=== PATIENT | female | born 1975 | race Caucasian/White ===

== ENCOUNTER 2019-04-20 21:10 | Emergency (ER) | payer MEDICAID ==
[2019-04-20] MEDS ORDERED: ONDANSETRON 4 MG TAB.RAPDIS PO ONE (22:24)
--- NOTE | 2019-04-20 22:26 | ER Document Report ---
ED Medical Screen (RME) - General Chief Complaint: Anxiety Stated Complaint: WITHDRAWAL,ANXIETY Time Seen by Provider: 04/20/19 22:22 Mode of Arrival: Wheelchair Information source: Patient Notes: Patient presents from a detox facility after 3 days of treatment for detox from methadone 80 mg daily and 1 mg 3 times a day daily of Xanax. Patient states that she had been receiving Depakote and clonidine to help manage her symptoms. Patient does complain of feeling anxious and that her legs feel restless. Patient reports nausea and diarrhea x1 episode today. Patient initially stated she had vomiting and then denied vomiting. Patient with tangential speech and poor recall. Patient also concerned that she may be having a Crohn's flareup. I have greeted and performed a rapid initial assessment of this patient. A comprehensive ED assessment and evaluation of the patient, analysis of test results and completion of the medical decision making process will be conducted by additional ED providers. TRAVEL OUTSIDE OF THE [place] IN LAST 30 DAYS: No - Related Data Allergies/Adverse Reactions: No Known Allergies Allergy (Unverified 04/20/19 21:16) Physical Exam - Vital signs Vitals: Temp Pulse Resp BP Pulse Ox 98 F 109 H 19 118/93 H 99 04/20/19 22:11 04/20/19 22:11 04/20/19 22:11 04/20/19 22:11 04/20/19 22:11 - Psychological Associated symptoms: Anxious, Tangential speech Course - Vital Signs Vital signs: Temp Pulse Resp BP Pulse Ox 98 F 109 H 19 118/93 H 99 04/20/19 22:11 04/20/19 22:11 04/20/19 22:11 04/20/19 22:11 04/20/19 22:11
[2019-04-20 23:47] LABS: APPEARANCE,URINE CLEAR; BILIRUBIN,URINE NEGATIVE (NEGATIVE); COLOR,URINE YELLOW; GLUCOSE, URINE NEGATIVE (NEGATIVE); KETONES,URINE TRACE mg/dL (NEGATIVE); LEUKOCYTE ESTERASE,URINE SMALL (NEGATIVE); NITRITE,URINE NEGATIVE (NEGATIVE); PROTEIN,URINE NEGATIVE (NEGATIVE); URINE SPECIFIC GRAVITY 1.011; UROBILINOGEN,URINE NEGATIVE mg/dL (<2.0)
[2019-04-20 23:59] LABS: URINE AMPHETAMINES SCREEN NEGATIVE; URINE BARBITURATES SCREEN NEGATIVE; URINE BENZODIAZEPINES SCREEN UNCONFIRMED POSITIVE; URINE COCAINE SCREEN NEGATIVE; URINE MARIJUANA (THC) SCREEN NEGATIVE; URINE METHADONE SCREEN UNCONFIRMED POSITIVE; URINE PHENCYCLIDINE SCREEN NEGATIVE
[2019-04-21 01:13] LABS: ALBUMIN 4.2 g/dL (3.5-5.0); ANION GAP 13 (5-19); BILIRUBIN,DIRECT 0.5 mg/dL (0.0-0.4); BILIRUBIN,TOTAL 0.6 mg/dL (0.2-1.3); BLOOD UREA NITROGEN 8 mg/dL (7-20); CALCIUM 9.5 mg/dL (8.4-10.2); CARBON DIOXIDE 24 mmol/L (22-30); CHLORIDE 104 mmol/L (98-107); GLUCOSE 102 mg/dL (75-110); TOTAL PROTEIN 8.2 g/dL (6.3-8.2)
[2019-04-21 01:22] LABS: ACETAMINOPHEN < 10 ug/mL (10-30); ALCOHOL < 10 mg/dL (NONE DETECTED); ASPARTATE AMINO TRANSFERASE 27 U/L (14-36); POTASSIUM 4.3 mmol/L (3.6-5.0); SALICYLATE < 1.0 mg/dL (2.0-20.0)
[2019-04-21 01:23] LABS: ALKALINE PHOSPHATASE 114 U/L (38-126)
[2019-04-21 01:26] LABS: HEMATOCRIT 30.5 % (36.0-47.0); HEMOGLOBIN 9.3 g/dL (12.0-15.5); MEAN CORPUSCULAR HEMOGLOBIN 18.7 pg (27.0-33.4); MEAN CORPUSCULAR HGB CONC 30.4 g/dL (32.0-36.0); PLATELET COUNT 226 10^3/uL (150-450); RED BLOOD COUNT 4.96 10^6/uL (3.72-5.28); RED CELL DISTRIBUTION WIDTH 18.4 % (11.5-14.0); WHITE BLOOD COUNT 5.6 10^3/uL (4.0-10.5)
[2019-04-21 01:54] LABS: ABSOLUTE LYMPHOCYTES# (MANUAL) 1.3 10^3/uL (0.5-4.7); ABSOLUTE MONOCYTES # (MANUAL) 0.2 10^3/uL (0.1-1.4); BASOPHILS % (MANUAL) 0 % (0-2); EOSINOPHILS % (MANUAL) 0 % (0-6); LYMPHOCYTES % (MANUAL) 23 % (13-45); MONOCYTES % (MANUAL) 4 % (3-13); SEGMENTED NEUTROPHILS % (MAN) 73 % (42-78); TOTAL CELLS COUNTED 100
[2019-04-21 01:56] LABS: ANISOCYTOSIS 2+; PLATELET COMMENT ADEQUATE
[2019-04-21 01:57] LABS: MEAN CORPUSCULAR VOLUME 62 fl (80-97)
[2019-04-21] MEDS ORDERED: NORMAL SALINE 1000 ML 1,000 ML IV ONE (03:51)
--- NOTE | 2019-04-21 03:55 | ER Document Report ---
ED General - General Chief Complaint: Anxiety Stated Complaint: WITHDRAWAL,ANXIETY Time Seen by Provider: 04/20/19 22:22 Mode of Arrival: Wheelchair Notes: Patient is a 43-year-old female that comes to the emergency department for chief complaint of being sent over by the detox clinic. She states that she is currently undergoing detox for methadone 80 mg daily and Xanax 4 mg twice a day, she states that this is day 3 of treatment and she states that the staff told her that because of her heart rate and symptoms she needed to be evaluated at the emergency department. Patient states she has not been able to eat, she states she has been very shaky, she feels like she is in a fog, she has difficulty with memory, her vision intermittently seems blurry, she states she threw up with dry heaves once this morning and she had one loose stool earlier today. She does not report specific abdominal pain. She denies blood in her stool. She denies fever. Patient has a history of Crohn's disease and needs to be on mesalamine but was taken off reportedly. She denies any history of bowel surgeries or bowel obstruction. TRAVEL OUTSIDE OF THE [place] IN LAST 30 DAYS: No - Related Data Allergies/Adverse Reactions: No Known Allergies Allergy (Unverified 04/20/19 21:16) Past Medical History - General Information source: Patient - Social History Smoking Status: Current Every Day Smoker Frequency of alcohol use: None Drug Abuse: None Lives with: Alone Family History: Reviewed & Not Pertinent Patient has suicidal ideation: No Patient has homicidal ideation: No Renal/ Medical History: Denies: Hx Peritoneal Dialysis GI Medical History: Reports: Hx Crohn's Disease Psychiatric Medical History: Reports: Other - Opiate and benzodiazepine dependence - Immunizations Immunizations up to date: Yes Hx Diphtheria, Pertussis, Tetanus Vaccination: Yes Review of Systems - Review of Systems Constitutional: See HPI EENT: No symptoms reported Cardiovascular: No symptoms reported Respiratory: No symptoms reported Gastrointestinal: See HPI Genitourinary: No symptoms reported Female Genitourinary: No symptoms reported Musculoskeletal: No symptoms reported Skin: No symptoms reported Hematologic/Lymphatic: No symptoms reported Neurological/Psychological: See HPI Physical Exam - Vital signs Vitals: Temp Pulse Resp BP Pulse Ox 98 F 109 H 19 118/93 H 99 04/20/19 22:11 04/20/19 22:11 04/20/19 22:11 04/20/19 22:11 04/20/19 22:11 - Notes Notes: GENERAL: Patient somewhat restless, appears mildly uncomfortable but not in distress HEAD: Normocephalic, atraumatic. EYES: Pupils equal, round, and reactive to light. Extraocular movements intact. ENT: Oral mucosa very dry, tongue midline. Oropharynx unremarkable. Airway patent. NECK: Full range of motion. Supple. Trachea midline. LUNGS: Clear to auscultation bilaterally, no wheezes, rales, or rhonchi. No respiratory distress. HEART: Regular rate and rhythm. No murmur ABDOMEN: Soft, non-tender. Non-distended. Bowel sounds present in all 4 quadrants. GENITOURINARY: Deferred EXTREMITIES: Moves all 4 extremities spontaneously. No edema, normal radial and dorsalis pedis pulses bilaterally. No cyanosis. BACK: no cervical, thoracic, lumbar midline tenderness. No saddle anesthesia, normal distal neurovascular exam. Moves all extremities in full range of motion. NEUROLOGICAL: Alert and oriented x3. Normal speech. Cranial nerves II through XII grossly intact. PSYCH: Disorganized thought process slightly, pressured speech, somewhat restless SKIN: Warm, dry, normal turgor. No rashes or lesions noted. Course - Re-evaluation Re-evalutation: Patient's abdomen is benign. Vital signs are unremarkable now. CBC shows anemia, no leukocytosis. Chemistry unremarkable. Urine does show ketones suggesting dehydration and patient does have dry mucous membranes, she will be given IV fluids. Urine otherwise unremarkable with some squamous epithelials contaminating. Drug screen is positive for methadone and benzodiazepines as patient reported. Alcohol negative, remaining screening negative. EKG unremarkable. Patient initially with pressured speech, she was jittery and slightly restless, she did initially have tachycardia. She is stating that she only took Xanax twice a day, this is very short acting, I am not suspecting benzodiazepine withdrawal. Patient is given IV fluids, I discussed options in detail. Patient states that she was sent over from [facility], she states that she does not intend to go back. She states she does want to stop and get off of methadone because she is afraid of being on it long-term. She states she was previously on Suboxone and actually did very well on this. She states that even though she does not want to go back, she states she wants to know what other options she has and she thinks that being on Suboxone might be the best option for her. I did discuss with Dr. Cox. Patient will be given a dose of Subutex as we do not have Suboxone, she is medically cleared based on her work-up and evaluation, she will speak to the mental health team and most likely follow-up with them outpatient. Patient states appreciation and agreement with plan. - Vital Signs Vital signs: Temp Pulse Resp BP Pulse Ox 98 F 109 H 16 150/102 H 100 04/20/19 22:11 04/20/19 22:11 04/21/19 05:01 04/21/19 05:01 04/21/19 05:01 - Laboratory Result Diagrams: 04/21/19 01:15 04/21/19 00:28 Laboratory results interpreted by me: 04/20/19 04/21/19 04/21/19 23:16 00:28 01:15 Hgb 9.3 L Hct 30.5 L MCV 62 L MCH 18.7 L MCHC 30.4 L RDW 18.4 H Direct Bilirubin 0.5 H Urine Ketones TRACE H Urine Blood MODERATE H Ur Leukocyte Esterase SMALL H Salicylates < 1.0 L Acetaminophen < 10 L - EKG Interpretation by Me Additional EKG results interpreted by me: EKG shows sinus rhythm rate of rate of 82, QTC 439, normal axis, no T wave inversions or ST segment changes in consecutive leads. Discharge - Discharge Clinical Impression: Methadone withdrawal, Dehydration Opiate dependence Qualifiers: Substance use status: uncomplicated Qualified Code(s): F11.20 - Opioid dependence, uncomplicated Condition: Stable Disposition: PSYCH HOSP/UNIT
[2019-04-21] MEDS ORDERED: BUPRENORPHINE HCL 2 MG SUBLINGUAL TABLET SL ONE (05:04)
--- NOTE | 2019-04-21 09:15 | EKG REPORT ---
SEVERITY:- NORMAL ECG - SINUS RHYTHM : Confirmed by: Michael Lay MD 21-Apr-2019 09:14:49
[2019-04-21] MEDS ORDERED: NICOTINE 21 MG/24 HR PATCH.TD24 TD ONE (09:57)
--- NOTE | 2019-04-21 09:59 | ER Document Report ---
Doctor's Note Notes: 04/21/19 09:58 I have evaluated this pt. this am and she has no complaints at this time. She feels all of her needs are being met and her physical exam is normal. She is awaiting placement per mental health.
[2019-04-21] MEDS ORDERED: HALOPERIDOL LACTATE INJ 5 MG/1 ML VIAL IM SCH (12:15)
--- NOTE | 2019-04-21 13:17 | PSYCHOLOGICAL NOTE ---
Psych Note - Psych Note Date seen by psych provider: 04/21/19 Time seen by psych provider: 07:45 Psych Note: Reason for consult: Detoxing psychosis polysubstance abuse; methadone and benzodiazepine Medication recommendations per [facility]'s contracted psychiatrist Dr. Joseph ETIENNE are as follows Haldol 5 mg IM every 8 hours as needed Cogentin 1 mg daily Impression\plan: Patient is recommended for IVC petition for overnight mental health observation. Patient is currently demonstrating difficulty in organized linear conversation. Patient is demonstrating increase in confusion and paranoia. Patient be reevaluated. Dr. Wolf was consulted to care management of this patient; attending physicians in agreement with recommendations and disposition.
[2019-04-21] MEDS ORDERED: HALOPERIDOL LACTATE INJ 5 MG/1 ML VIAL IM ONE (19:39)
--- NOTE | 2019-04-21 19:42 | ER Document Report ---
ED General - General Chief Complaint: Anxiety Stated Complaint: WITHDRAWAL,ANXIETY Time Seen by Provider: 04/20/19 22:22 Mode of Arrival: Wheelchair TRAVEL OUTSIDE OF THE [place] IN LAST 30 DAYS: No - Related Data Allergies/Adverse Reactions: No Known Allergies Allergy (Unverified 04/20/19 21:16) Past Medical History - General Information source: Patient - Social History Smoking Status: Current Every Day Smoker Frequency of alcohol use: None Drug Abuse: None Lives with: Alone Family History: Reviewed & Not Pertinent Patient has suicidal ideation: No Patient has homicidal ideation: No Renal/ Medical History: Denies: Hx Peritoneal Dialysis GI Medical History: Reports: Hx Crohn's Disease Psychiatric Medical History: Reports: Other - Opiate and benzodiazepine dependence - Immunizations Immunizations up to date: Yes Hx Diphtheria, Pertussis, Tetanus Vaccination: Yes Physical Exam - Vital signs Vitals: Temp Pulse Resp BP Pulse Ox 98 F 109 H 19 118/93 H 99 04/20/19 22:11 04/20/19 22:11 04/20/19 22:11 04/20/19 22:11 04/20/19 22:11 Course - Vital Signs Vital signs: Temp Pulse Resp BP Pulse Ox 98.1 F 82 18 132/87 H 99 04/21/19 18:00 04/21/19 18:00 04/21/19 18:00 04/21/19 18:00 04/21/19 18:00 - Laboratory Result Diagrams: 04/21/19 01:15 04/21/19 00:28 Laboratory results interpreted by me: 04/20/19 04/21/19 04/21/19 23:16 00:28 01:15 Hgb 9.3 L Hct 30.5 L MCV 62 L MCH 18.7 L MCHC 30.4 L RDW 18.4 H Direct Bilirubin 0.5 H Urine Ketones TRACE H Urine Blood MODERATE H Ur Leukocyte Esterase SMALL H Salicylates < 1.0 L Acetaminophen < 10 L - Transfer of Care Notes: 04/21/19 19:41 Patient remains medically stable. Is developed some mild agitation, review of her records indicate psychiatry recommended as needed every 8 hours Haldol. Dose of 5 mg IM has been ordered. Discharge - Discharge Clinical Impression: Methadone withdrawal, Dehydration Opiate dependence Qualifiers: Substance use status: uncomplicated Qualified Code(s): F11.20 - Opioid dependence, uncomplicated Condition: Stable Disposition: PSYCH HOSP/UNIT
[2019-04-22] MEDS ORDERED: ONDANSETRON 4 MG TAB.RAPDIS PO PRN (10:09)
[2019-04-22] MEDS ORDERED: PROMETHAZINE HCL 25 MG TABLET PO ONE (10:10)
--- NOTE | 2019-04-22 10:13 | ER Document Report ---
Doctor's Note Notes: 04/22/19 10:11 Rounds: Chart reviewed and patient interviewed. Patient complaining of nausea. Patient with a history of substance abuse. Here from detox because of symptoms suggestive of withdrawal. Patient is on methadone and Xanax. Urine drug screen is positive for benzos and for methadone. Also noted, patient's hemoglobin is 9.3, but all the indicators suggest this is a chronic, iron deficient anemia. Vital signs were normal except for heart rate of 117 but on repeat this morning is 96. Manfred Bennett MD
[2019-04-22] MEDS: BENZTROPINE MESYLATE 1 MG TABLET PO SCH (10:14)
--- NOTE | 2019-04-22 11:43 | PSYCHOLOGICAL NOTE ---
Psych Note - Psych Note Date seen by psych provider: 04/22/19 Time seen by psych provider: 09:35 - Evaluation from [id number]. Psych Note: Presenting Problem: 24 Hour IVC, had been at the [facility] [place] for Methadone and Xanax Detox when she started having increased paranoia and confusion along with tachycardia and other medical issues so was sent to the ED. She had presented as a poor historian. Today she stated "I am not doing well but am better then when I first came in." She reported "I have a lot of anxiety and am coming off a lot of Methadone and Xanax." She denied having full detox previously. She stated she was trying to get back to [facility] where she is from and was in this area for detox/rehab. She mentioned needing to get her mother's phone number from her cell phone in order to discuss planning and getting back to [facility]. She denied SI/HI. She was more alert and oriented with linear thinking. She was able to answer questions appropriately and have dialogue conversation. Patient provided mother's contact information (Brianna [phone]). Mother noted patient needs to finish detox, it is a condition of being able to be part of her 12 year old son's life (has supervised visits with patient's mother present, the father has custody, patient is , all due to addiction). Mother identified it was difficult finding treatment in her area. The [facility] is patient's mailing address, she has no home, has lived from place to place. Family friend/neighbor (Cooper Cotton [phone]) called as a natural support since patient's mother is in [place] for her other grandchildren. She also stated patient needs to finish her detox and then go to the next level of treatment. Diagnosis: AMS Psychosis 292.0 (F11.23) Opioid Withdrawal (Methadone) 292.0 (F13.231) Anxiolytic Withdrawal (Xanax) Delirium Medication recommendations made by the psychiatric medication provider, Dr. Joseph MD., includes: Add Haldol 5MG IM once now for psychosis and withdrawal Add Cogentin 1MG once now to curb tremor side effects often associated with antipsychotic medications Impression/Plan: Recommendation to hold overnight again. Tried to reach [facility] [place] without success. Will try to get her back there tomorrow (04/23/19) morning to complete her detox. Consulted with Dr. Wolf regarding the management and care of patient. ED Physician in agreement with recommendations.
[2019-04-22] MEDS ORDERED: HALOPERIDOL LACTATE INJ 5 MG/1 ML VIAL IM ONE (16:45)
[2019-04-22] MEDS ORDERED: HYDROXYZINE PAMOATE 50 MG CAPSULE PO ONE (23:04)
--- NOTE | 2019-04-22 23:06 | ER Document Report ---
Doctor's Note Notes: 04/22/19 23:05 Patient complaining of significant anxiety. She was withdrawing from Xanax which is why she is here. Will give her some hydroxyzine instead
[2019-04-22 23:39] VITALS: BP 119/89
[2019-04-23] MEDS: BENZTROPINE MESYLATE 1 MG TABLET PO SCH (09:19)
--- NOTE | 2019-04-23 10:18 | ER Document Report ---
Doctor's Note Notes: 04/23/19 10:16 Rounds: Chart reviewed and patient interviewed. Patient complains of being anxious and feeling nervous. Being evaluated for substance abuse referred here from detox for altered mental status and psychosis. She has cleared mentally,. Lab studies were positive for benzos and methadone. Vital signs are all normal. Patient appears to be medically stable for transfer or discharge. Manfred Bennett MD
[2019-04-23] MEDS ORDERED: HYDROXYZINE PAMOATE 50 MG CAPSULE PO ONE (10:19)
[2019-04-23 11:24] LABS: PATH REVIEW PATHOLOGIST REVIEWED
== END 2019-04-23 10:30 | disposition home or self-care (01) ==
LOC: ER 21:10
DX: F11.23 Opioid dependence with withdrawal (principal); F13.239 Sedative, hypnotic or anxiolytic dependence with withdrawal, unspecified; E86.0 Dehydration; F41.9 Anxiety disorder, unspecified; F17.200 Nicotine dependence, unspecified, uncomplicated; R11.0 Nausea
CPT/HCPCS: 93005; 99284; 96372; 96360; 36415; 87086; 80307 ×4; 84703; 85025; 87088; 80053; 81001; 87186; 93010; J3490 ×5; J1630 ×2; J7030; J0571

== ENCOUNTER 2019-04-23 12:29 | Emergency (ER) | payer MEDICAID ==
--- NOTE | 2019-04-23 13:21 | ER Document Report ---
ED Medical Screen (RME) - General Chief Complaint: Palpitations Stated Complaint: palpitations Time Seen by Provider: 04/23/19 12:55 Notes: HPI: 28-year-old female with a history of methadone and Xanax abuse who was seen here and evaluated recently and discharged this morning to go to detox at [facility] however she states she walked from our facility over to [place] and felt the palpitations again like she had when she was here for her visit recently. She states the intake nurse at [facility] checked her vitals and noted a pulse of 160bpm so she sent her back over here for medical clearance. she has no cp or sob. Patient denies any fall or trauma. She just states occasionally she feels like her heart is racing however it feels better than it did when she initially came over a couple days ago. She denies any drug use since leaving he re. She thinks she just got a little hot walking over there. She denies any prior history of tachyarrhythmias or heart disease. She states her mother had some heart problems but she is not sure what it was and what age it was. She does smoke cigarettes. She denies any hypertension or hyperlipidemia. She has never had a stress test. No prior AK. No history of A. fib. No syncope. No other complaints at this time. ROS neg to include 10 systems, unless mentioned in the hpi. PE:>>>> PHYSICAL_EXAM: GENERAL_APPEARANCE: well_nourished, alert, cooperative, no_acute_distress, no_obvious_discomfort. pleasant, young white female, who appears older than stated age, smiling, speaking in full sentences, in no sign of pain or resp distress, no one is with her VITALS: reviewed, see vital signs table. HEAD: no_swelling\tenderness on the head. normocephalic. atraumatic. no perez signs. no raccoons eyes. EYES: PERRL, EOMI, conjunctiva_clear. NOSE: no_nasal_discharge. MOUTH: (-)decreased moisture. THROAT: no_tonsilar_inflammation, no_airway_obstruction. no_lymphadenopathy NECK: supple, no_neck_tenderness, full rom. full strength. BACK: no_back_tenderness. CHEST_WALL: no_chest_tenderness. no overlying skin changes LUNGS: no_wheezing, ctab (-)accessory muscle use, good air exchange bilateral. HEART: normal_rate, normal_rhythm, no_murmur, ABDOMEN: normal_BS, soft, no_abd_tenderness, (-)guarding, (-)rebound, no distension or peritoneal signs. no cva ttp EXTREMITIES: strength 5/5 in all_extremities, good pulses in all_extremities, no_swelling\tenderness in the extremities, no_edema. full rom. normal gait. good pulses. brisk cap refill. good hand turning machine operator. NEURO: motor and sensation intact, cranial nerves 2-12 intact, cerebellar fxn intact SKIN: warm, dry, good_color, no_rash. MENTAL_STATUS: speech_clear, oriented_X_3, normal_affect, responds_appropriately to questions. MDM: I have ordered labs and initial work-up and patient will be transferred to the main ER for further work-up. I have greeted and performed a rapid initial assessment of this patient. A comprehensive ED assessment and evaluation of the patient, analysis of test results and completion of medical decision making process will be conducted by an additional ED providers. Documentation achieved through voice recording which my lead to some occasional accidental typographical errors. Extensive efforts have been made to proof read documentation to make sure these are the least as possible Temp Pulse Resp BP Pulse Ox 04/23/19 12:41 98.3 F 119 H 18 133/93 H 99 Category Date Time Status EKG Documentation STAT Care 04/23/19 12:31 Completed CHEST 2 VIEWS [RAD] Stat Exams 04/23/19 13:29 Ordered CBC WITH DIFF [HEME] Stat Lab 04/23/19 13:28 Ordered COMPREHENSIVE METABOLIC PANEL [CHEM] Stat Lab 04/23/19 13:28 Ordered CREATINE KINASE MB [CHEM] Stat Lab 04/23/19 13:28 Ordered CREATINE KINASE [CHEM] Stat Lab 04/23/19 13:28 Ordered D-DIMER [COAG] Stat Lab 04/23/19 13:29 Ordered FREE T3 [CHEM] Stat Lab 04/23/19 13:30 Ordered MAGNESIUM [CHEM] Stat Lab 04/23/19 13:29 Ordered PARTIAL THROMBOPLASTIN TIME [COAG] Stat Lab 04/23/19 13:29 Ordered PROTHROMBIN TIME/INR [COAG] Stat Lab 04/23/19 13:29 Ordered T4 [FREE T4 (FREE THYROXINE)] [CHEM] Stat Lab 04/23/19 13:30 Ordered THYROID STIMULATING HORMONE [CHEM] Stat Lab 04/23/19 13:30 Ordered TROPONIN I [CHEM] Stat Lab 04/23/19 13:28 Ordered URINALYSIS [URIN] Stat Lab 04/23/19 13:28 Uncollected URINE DRUG SCREEN [CHEM] Stat Lab 04/23/19 13:28 Uncollected Normal Saline 1000 ml [NaCl 0.9% 1000 ml IV Soln] 1,000 Med 04/23/19 13:30 Ordered ml IV BOLUS EKG ER ONLY [ER] Stat Oth 04/23/19 Active TRAVEL OUTSIDE OF THE [place]S. IN LAST 30 DAYS: No - Related Data Allergies/Adverse Reactions: No Known Allergies Allergy (Unverified 04/20/19 21:16) Past Medical History Renal/ Medical History: Denies: Hx Peritoneal Dialysis GI Medical History: Reports: Hx Crohn's Disease - Immunizations Immunizations up to date: Yes Hx Diphtheria, Pertussis, Tetanus Vaccination: Yes Physical Exam - Vital signs Vitals: Temp Pulse Resp BP Pulse Ox 98.3 F 119 H 18 133/93 H 99 04/23/19 12:41 04/23/19 12:41 04/23/19 12:41 04/23/19 12:41 04/23/19 12:41 Course - Vital Signs Vital signs: Temp Pulse Resp BP Pulse Ox 98.3 F 119 H 18 133/93 H 99 04/23/19 12:41 04/23/19 12:41 04/23/19 12:41 04/23/19 12:41 04/23/19 12:41
[2019-04-23] MEDS ORDERED: NORMAL SALINE 1000 ML 1,000 ML IV ONE (13:30)
--- NOTE | 2019-04-23 14:19 | RADIOLOGY REPORT (SQ) ---
EXAM DESCRIPTION: CHEST 2 VIEWS COMPLETED DATE/TIME: 04/23/2019 2:05 pm REASON FOR STUDY: tachcardia COMPARISON: None. EXAM PARAMETERS: NUMBER OF VIEWS: two views TECHNIQUE: Digital Frontal and Lateral radiographic views of the chest acquired. RADIATION DOSE: NA LIMITATIONS: none FINDINGS: LUNGS AND PLEURA: No opacities, masses or pneumothorax. No pleural effusion. MEDIASTINUM AND HILAR STRUCTURES: No masses or contour abnormalities. HEART AND VASCULAR STRUCTURES: Heart normal size. No evidence for failure. BONES: No acute findings. HARDWARE: None in the chest. OTHER: No other significant finding. IMPRESSION: Cardiomegaly without acute abnormality of the lungs. TECHNICAL DOCUMENTATION: JOB ID: [id number] [employer]- All Rights Reserved Reading location - IP/workstation name: [email or web address]
[2019-04-23 15:03] LABS: ABSOLUTE BASOPHILS # (AUTO) 0.1 10^3/uL (0.0-0.2); ABSOLUTE LYMPHOCYTES (AUTO) 1.1 10^3/uL (0.5-4.7); ABSOLUTE MONOCYTES (AUTO) 0.5 10^3/uL (0.1-1.4); ABSOLUTE NEUT (AUTO) 4.8 10^3/uL (1.7-8.2); BASOPHILS % (AUTO) 0.8 % (0-2); EOSINOPHILS % (AUTO) 0.2 % (0-6); HEMATOCRIT 33.9 % (36.0-47.0); HEMOGLOBIN 10.3 g/dL (12.0-15.5); LYMPHOCYTES % (AUTO) 16.7 % (13-45); MEAN CORPUSCULAR HEMOGLOBIN 19.1 pg (27.0-33.4); MEAN CORPUSCULAR HGB CONC 30.4 g/dL (32.0-36.0); MEAN CORPUSCULAR VOLUME 63 fl (80-97); MONOCYTES % (AUTO) 7.1 % (3-13); PLATELET COUNT 222 10^3/uL (150-450); RED BLOOD COUNT 5.39 10^6/uL (3.72-5.28); RED CELL DISTRIBUTION WIDTH 19.2 % (11.5-14.0); SEGMENTED NEUTROPHILS % (AUTO) 75.2 % (42-78); TOTAL CELLS COUNTED % (AUTO) 100 %; WHITE BLOOD COUNT 6.4 10^3/uL (4.0-10.5)
[2019-04-23 15:07] LABS: INTERNATIONAL RATION (INR) 1.05; PROTHROMBIN TIME 13.8 SEC (11.4-15.4)
[2019-04-23 15:26] LABS: ANISOCYTOSIS 2+; D-DIMER < 0.27 ug/mL (0.00-0.50); HYPOCHROMASIA 2+; OVALOCYTES SLIGHT; PLATELET COMMENT ADEQUATE; PLATELET GIANT PRESENT; PLATELET LARGE PRESENT; POIKILOCYTOSIS SLIGHT; SCHISTOCYTES SLIGHT
[2019-04-23 15:27] LABS: ALBUMIN 4.3 g/dL (3.5-5.0); ALKALINE PHOSPHATASE 102 U/L (38-126); ANION GAP 12 (5-19); ASPARTATE AMINO TRANSFERASE 35 U/L (14-36); BILIRUBIN,DIRECT 0.5 mg/dL (0.0-0.4); BILIRUBIN,TOTAL 0.6 mg/dL (0.2-1.3); BLOOD UREA NITROGEN 10 mg/dL (7-20); CALCIUM 9.4 mg/dL (8.4-10.2); CARBON DIOXIDE 25 mmol/L (22-30); CHLORIDE 102 mmol/L (98-107); GLUCOSE 97 mg/dL (75-110); POTASSIUM 3.8 mmol/L (3.6-5.0); TOTAL PROTEIN 8.5 g/dL (6.3-8.2)
[2019-04-23 15:31] LABS: CREATINE KINASE MB 0.43 ng/mL (<4.55)
[2019-04-23 15:32] LABS: TROPONIN I < 0.012 ng/mL
[2019-04-23 15:37] LABS: FREE T3 4.82 pg/mL (2.77-5.27); FREE T4 (FREE THYROXINE) 1.18 ng/dL (0.78-2.19)
[2019-04-23 15:51] LABS: THYROID STIMULATING HORMONE 3.14 uIU/mL (0.47-4.68)
--- NOTE | 2019-04-23 16:35 | ER Document Report ---
ED Cardiac - General Chief Complaint: Palpitations Stated Complaint: palpitations Time Seen by Provider: 04/23/19 12:55 Mode of Arrival: Ambulatory Information source: Patient TRAVEL OUTSIDE OF THE U.S. IN LAST 30 DAYS: No - HPI Notes: Patient was brought in for palpitations. Patient was recently discharged from this facility this morning after being treated for detox from benzodiazepines. She states when she checked into the crisis center where she will be staying her heart rate was 160 so she was brought back to the emergency department for mihaela murphy. She denies any palpitations or chest pains at this time. She has no shortness of breath. She states she has some minor abdominal pain but no more than usual. She states she does have a history of Crohn's and has chronic abdominal pain. She states she does not feel lightheaded or dizzy. She states she does feel anxious. The symptoms this morning were intermittent. They were transient. They consisted of feeling her heart racing. There is no radiation of symptoms. They were moderate. They were worse with exertion and better with rest. - Related Data Allergies/Adverse Reactions: No Known Allergies Allergy (Unverified 04/20/19 21:16) Past Medical History - General Information source: Patient - Social History Smoking Status: Never Smoker Frequency of alcohol use: None Drug Abuse: Prescription drugs Lives with: Family Family History: Reviewed & Not Pertinent Patient has suicidal ideation: No Patient has homicidal ideation: No - Past Medical History Cardiac Medical History: Denies: Hx Atrial Fibrillation, Hx Congestive Heart Failure, Hx Coronary Artery Disease, Hx Heart Attack Pulmonary Medical History: Denies: Hx COPD, Hx Respiratory Failure Neurological Medical History: Denies: Hx Cerebrovascular Accident, Hx Seizures Renal/ Medical History: Denies: Hx Peritoneal Dialysis GI Medical History: Reports: Hx Crohn's Disease - Immunizations Immunizations up to date: Yes Hx Diphtheria, Pertussis, Tetanus Vaccination: Yes Review of Systems - Review of Systems Constitutional: denies: Chills, Fever Cardiovascular: Palpitations. denies: Chest pain, Dyspnea Respiratory: denies: Cough, Short of breath Gastrointestinal: Abdominal pain. denies: Diarrhea, Vomiting -: Yes All other systems reviewed and negative Physical Exam - Vital signs Vitals: Temp Pulse Resp BP Pulse Ox 98.3 F 119 H 18 133/93 H 99 04/23/19 12:41 04/23/19 12:41 04/23/19 12:41 04/23/19 12:41 04/23/19 12:41 Interpretation: Normal - General General appearance: Appears well, Alert - HEENT Head: Normocephalic, Atraumatic Eyes: Normal Pupils: PERRL - Respiratory Respiratory status: No respiratory distress Chest status: Nontender Breath sounds: Normal Chest palpation: Normal - Cardiovascular Rhythm: Regular Heart sounds: Normal auscultation Murmur: No Notes: At the time of my exam patient's heart was regular rate and rhythm with a rate of 90. - Abdominal Inspection: Normal Distension: No distension Bowel sounds: Normal Tenderness: Nontender Organomegaly: No organomegaly - Back Back: Normal, Nontender - Extremities General upper extremity: Normal inspection, Nontender, Normal color, Normal ROM, Normal temperature General lower extremity: Normal inspection, Nontender, Normal color, Normal ROM, Normal temperature, Normal weight bearing. No: Nader's sign - Neurological Neuro grossly intact: Yes Cognition: Normal Orientation: AAOx4 [place] Coma Scale Eye Opening: Spontaneous Roger Coma Scale Verbal: Oriented [place] Coma Scale Motor: Obeys Commands Roger Coma Scale Total: 15 Speech: Normal Motor strength normal: LUE, RUE, LLE, RLE Sensory: Normal - Psychological Associated symptoms: Normal affect, Normal mood - Skin Skin Temperature: Warm Skin Moisture: Dry Skin Color: Normal Course - Vital Signs Vital signs: Temp Pulse Resp BP Pulse Ox 98.3 F 119 H 18 133/93 H 99 04/23/19 12:41 04/23/19 12:41 04/23/19 12:41 04/23/19 12:41 04/23/19 12:41 - Laboratory Result Diagrams: 04/23/19 14:46 04/23/19 14:46 Laboratory results interpreted by me: 04/23/19 04/23/19 14:46 14:46 RBC 5.39 H Hgb 10.3 L Hct 33.9 L MCV 63 L MCH 19.1 L MCHC 30.4 L RDW 19.2 H Direct Bilirubin 0.5 H Total Protein 8.5 H - EKG Interpretation by Me EKG shows normal: Sinus rhythm Rate: Tachycardia - rate 117 Rhythm: NSR [place]/QRS: No: Right axis deviation, Left axis deviation - Transfer of Care Notes: 04/23/19 16:34 Patient presents for palpitations however this time she is not tachycardic. I believe patient can be transferred back to [facility]. Laboratories are unremarkable. EKG shows sinus tachycardia which is no longer present. Patient has a negative d-dimer. Discharge - Discharge Clinical Impression: Palpitations, Benzodiazepine dependence Condition: Good Disposition: PSYCH HOSP/UNIT Instructions: Benzodiazepines (OM), Palpitations (Irregular or Rapid Heartrate) (FORM[facility]LY [facility])
[2019-04-23] MEDS ORDERED: HYDROXYZINE PAMOATE 25 MG CAPSULE PO ONE (16:36)
[2019-04-23 16:44] VITALS: BP 118/80
--- NOTE | 2019-04-24 09:34 | EKG REPORT ---
SEVERITY:- OTHERWISE NORMAL ECG - SINUS TACHYCARDIA : Confirmed by: Linda Nunez 24-Apr-2019 09:33:51
== END 2019-04-23 17:04 ==
LOC: ER 12:29
DX: R00.2 Palpitations (principal); F13.20 Sedative, hypnotic or anxiolytic dependence, uncomplicated; R10.9 Unspecified abdominal pain; G89.29 Other chronic pain; K50.90 Crohn's disease, unspecified, without complications; F41.9 Anxiety disorder, unspecified
CPT/HCPCS: 93005; 36415; 84439; 82553; 82550; 83735; 84443; 85025; 85610; 85730; 80053; 84484; 84481; 85379; 71046; 93010; J3490; J7030; 96360; 96361; 99285

== ENCOUNTER 2019-04-25 18:05 | Emergency (ER) | payer MEDICAID, OTHER ==
[2019-04-25] MEDS ORDERED: CLONIDINE 0.1 MG/24 HR PATCH.TDWK TD ONE (18:33)
--- NOTE | 2019-04-25 18:34 | ER Document Report ---
ED Medical Screen (RME) - General Chief Complaint: Medical Clearance Stated Complaint: WITHDRAWAL/DRUGS Time Seen by Provider: 04/25/19 18:32 TRAVEL OUTSIDE OF THE U.S. IN LAST 30 DAYS: No - HPI Notes: 04/25/19 18:33 Patient is a 43-year-old female who was sent over by [facility] facility on IVC paperwork for further evaluation and management. Briefly, ours psych team believes that she may need more involved detox care. Patient states that she will continue to have some palpitations and feeling very anxious. Last time she used was 4 to 5 days ago. She was IVC this past Tuesday/Tuesday as well. No SI/HI. Denies DALE, fever, neck pain, URI, CP, SOB, Abd pain, dysuria, back pain, or rash. I have treated and performed a rapid initial assessment of this patient. A comprehensive ED assessment and evaluation of the patient, analysis of test results and completion of medical decision making process will be conducted by additional ED providers. PHYSICAL EXAMINATION: GENERAL: Well-appearing, well-nourished and in no acute distress. A&Ox4. Answers questions appropriately. LUNGS: Breath sounds clear to auscultation bilaterally and equal. No wheezes rales or rhonchi. HEART: Regular rate and rhythm without murmurs, rubs, gallops. NEUROLOGICAL: Normal speech, normal gait. PSYCH: Anxious - Related Data Allergies/Adverse Reactions: No Known Allergies Allergy (Verified 04/25/19 18:05) Past Medical History - Past Medical History Cardiac Medical History: Denies: Hx Atrial Fibrillation, Hx Congestive Heart Failure, Hx Coronary Artery Disease, Hx Heart Attack Pulmonary Medical History: Denies: Hx COPD, Hx Respiratory Failure Neurological Medical History: Denies: Hx Cerebrovascular Accident, Hx Seizures Renal/ Medical History: Denies: Hx Peritoneal Dialysis GI Medical History: Reports: Hx Crohn's Disease - Immunizations Immunizations up to date: Yes Hx Diphtheria, Pertussis, Tetanus Vaccination: Yes Physical Exam - Vital signs Vitals: Temp Pulse Resp BP Pulse Ox 98.1 F 110 H 18 138/98 H 95 04/25/19 18:09 04/25/19 18:09 04/25/19 18:09 04/25/19 18:09 04/25/19 18:09 Course - Vital Signs Vital signs: Temp Pulse Resp BP Pulse Ox 98.1 F 110 H 18 138/98 H 95 04/25/19 18:09 04/25/19 18:09 04/25/19 18:09 04/25/19 18:09 04/25/19 18:09
--- NOTE | 2019-04-25 19:34 | ER Document Report ---
Addendum entered and electronically signed by NOAH LANGE LCSWA 04/26/19 15:04: Discharge - Discharge Clinical Impression: Substance abuse Condition: Stable Disposition: HOME, SELF-CARE Additional Instructions: You have been evaluated both medical and behavioral health teams and been deemed appropriate for discharge. You are highly encouraged to stop using methadone and benzodiazepines. Unfortunately at this time you are unable to return to the [facility] center. You have been provided a local resource list of area providers including mobile crisis contact information and economic resource list which includes soup kitchen, food bank, chcf, and additional economic programs. You are highly encouraged to continue working with outpatient mental health provider for sobriety. NARCOTIC / OPIOD ABUSE: Narcotics and opiods are pain-relieving drugs that are often abused. They are addicting. Narcotics cause euphoria, but it often takes increasing amounts to "feel good" and avoid withdrawal symptoms. Overdose of narcotics causes small pupils, coma, and decreased breathing. It's a common cause of . Purity of street narcotics is unpredictable. Injection of narcotics is risky for abscesses, endocarditis (heart infection), pneumonia, and AIDS. Withdrawal from narcotics causes goose bumps, watery mouth, sweating, nasal congestion, muscle aches, abdominal cramps, vomiting, and diarrhea. There's often restlessness and confusion. Treatment programs are available, but you must make the decision to quit. Medication (such as clonidine) can be prescribed to control the symptoms of withdrawal. FOLLOW-UP CARE: If you have been referred to a physician for follow-up care, call the physicians office for an appointment as you were instructed or within the next two days. If you experience worsening or a significant change in your symptoms, notify the physician immediately or return to the Emergency Department at any time for re-evaluation. Referrals: [facility] [Outside] - Follow up as needed Original Note: ED General - General Chief Complaint: Medical Clearance Stated Complaint: WITHDRAWAL/DRUGS Time Seen by Provider: 04/25/19 18:32 TRAVEL OUTSIDE OF THE [place] IN LAST 30 DAYS: No - HPI Notes: 43-year-old female with a long-standing history of benzodiazepine abuse/Xanax use who presents on involuntary commitment papers from [facility]. Patient indicates that for some unknown reason her she was sent over here this evening under IVC papers to "get higher level of care". Patient comes with an IVC paper that has minimal information and just states that she has mental problems, she is considered to be a danger to herself and others at times and she has been detoxing. Patient herself denies any acute medical complaint. States her last use was over a week ago. By description, she has been on a benzodiazepine taper but is not currently receiving benzodiazepines. She adamantly denies any suicidal homicidal ideation. She has no active delusions or hallucinations. She exhibits no symptoms of paranoia. No other modifying factors, no other associated symptoms, no other provocative or palliative factors. This is now allegedly the second time that she has been sent over here under IVC papers within a week from the same facility - Related Data Allergies/Adverse Reactions: No Known Allergies Allergy (Verified 04/25/19 18:05) Past Medical History - Social History Smoking Status: Current Every Day Smoker Chew tobacco use (# tins/day): No Frequency of alcohol use: None Family History: Reviewed & Not Pertinent Patient has suicidal ideation: No Patient has homicidal ideation: No - Past Medical History Cardiac Medical History: Denies: Hx Atrial Fibrillation, Hx Congestive Heart Failure, Hx Coronary Artery Disease, Hx Heart Attack Pulmonary Medical History: Denies: Hx COPD, Hx Respiratory Failure Neurological Medical History: Denies: Hx Cerebrovascular Accident, Hx Seizures Renal/ Medical History: Denies: Hx Peritoneal Dialysis GI Medical History: Reports: Hx Crohn's Disease - Immunizations Immunizations up to date: Yes Hx Diphtheria, Pertussis, Tetanus Vaccination: Yes Review of Systems - Review of Systems Notes: Review of systems as in the history of present illness, otherwise negative x 10 systems. Physical Exam - Vital signs Vitals: Temp Pulse Resp BP Pulse Ox 98.1 F 110 H 18 138/98 H 95 04/25/19 18:09 04/25/19 18:09 04/25/19 18:09 04/25/19 18:09 04/25/19 18:09 - Notes Notes: General: Well developed . HEENT: Normocephalic, atraumatic. Pupils equal round reactive to light. No JVD. Chest: No trauma. Respiratory: Good air exchange, normal excursion. Cardiac: Regular rhythm. No murmurs or gallops. Abdomen: Soft, benign. Nondistended. Nontender. Back: No asymmetry or gross abnormality. Motor: Grossly normal power and tone. Neurologic: Alert, nonfocal. Cranial nerves II-12 are intact. Sensation intact. Vascular: Well perfused. Normal peripheral pulses. Skin: No petechiae or purpura. Course - Re-evaluation Re-evalutation: 04/25/19 19:33 Well-appearing 43-year-old female no active medical complaint, appears medically stable. At this point, I see no compelling reason that she would be under involuntary commitment. She exhibits no signs or symptoms of suicidality or homicidality. She has insight into her condition, is able to carry on a clear conversation and answers appropriately. She exhibits no sign of paranoia or delusions. She is not under the influence of any apparent substances. I have attempted to contact the facility and despite speaking with several people and being placed on hold, they are able to find somebody speak with me cogently as to why she was placed under involuntary commitment by the psychiatrist. Currently I am waiting to hear back, further evaluation management pending. 04/25/19 21:02 Was ultimately able to speak with the psychiatrist covering [facility]. Indicates that last night patient had some auditory tactile hallucinations and that he just felt that she would be better served by a higher level of care and detox, possibly inpatient detox. During my course with the patient, she is exhibited no sign of hallucinations, delusions, paranoia, suicidal or homicidal ideation. I do not see a compelling reason to continue her involuntary commitment. However, she does wish for help with detox and we will proceed with psychiatric evaluation in the morning, basic medical clearance studies. She appears medically stable at this time with no active medical complaint. - Vital Signs Vital signs: Temp Pulse Resp BP Pulse Ox 98.1 F 110 H 18 138/98 H 95 04/25/19 18:09 04/25/19 18:09 04/25/19 18:09 04/25/19 18:09 04/25/19 18:09 Discharge - Discharge Clinical Impression: Substance abuse Disposition: PSYCH HOSP/UNIT
[2019-04-25 21:58] LABS: APPEARANCE,URINE CLEAR; BILIRUBIN,URINE NEGATIVE (NEGATIVE); COLOR,URINE YELLOW; GLUCOSE, URINE NEGATIVE (NEGATIVE); KETONES,URINE NEGATIVE (NEGATIVE); LEUKOCYTE ESTERASE,URINE TRACE (NEGATIVE); NITRITE,URINE NEGATIVE (NEGATIVE); PROTEIN,URINE NEGATIVE (NEGATIVE); URINE SPECIFIC GRAVITY 1.012; UROBILINOGEN,URINE NEGATIVE mg/dL (<2.0)
[2019-04-25 22:11] LABS: URINE AMPHETAMINES SCREEN NEGATIVE; URINE BARBITURATES SCREEN NEGATIVE; URINE BENZODIAZEPINES SCREEN UNCONFIRMED POSITIVE; URINE COCAINE SCREEN NEGATIVE; URINE MARIJUANA (THC) SCREEN NEGATIVE; URINE METHADONE SCREEN UNCONFIRMED POSITIVE; URINE PHENCYCLIDINE SCREEN NEGATIVE
[2019-04-25 22:28] LABS: ABSOLUTE BASOPHILS # (AUTO) 0.1 10^3/uL (0.0-0.2); ABSOLUTE EOSINOPHILS # (AUTO) 0.1 10^3/uL (0.0-0.6); ABSOLUTE MONOCYTES (AUTO) 0.5 10^3/uL (0.1-1.4); ABSOLUTE NEUT (AUTO) 4.5 10^3/uL (1.7-8.2); BASOPHILS % (AUTO) 1.1 % (0-2); EOSINOPHILS % (AUTO) 1.6 % (0-6); HEMATOCRIT 29.4 % (36.0-47.0); HEMOGLOBIN 9.2 g/dL (12.0-15.5); LYMPHOCYTES % (AUTO) 27.2 % (13-45); MEAN CORPUSCULAR HEMOGLOBIN 19.3 pg (27.0-33.4); MEAN CORPUSCULAR HGB CONC 31.2 g/dL (32.0-36.0); MEAN CORPUSCULAR VOLUME 62 fl (80-97); MONOCYTES % (AUTO) 7.1 % (3-13); PLATELET COUNT 255 10^3/uL (150-450); RED BLOOD COUNT 4.75 10^6/uL (3.72-5.28); RED CELL DISTRIBUTION WIDTH 19.1 % (11.5-14.0); TOTAL CELLS COUNTED % (AUTO) 100 %; WHITE BLOOD COUNT 7.2 10^3/uL (4.0-10.5)
[2019-04-25 22:41] LABS: ALBUMIN 3.9 g/dL (3.5-5.0); ALKALINE PHOSPHATASE 88 U/L (38-126); ANION GAP 9 (5-19); ASPARTATE AMINO TRANSFERASE 31 U/L (14-36); BILIRUBIN,DIRECT 0.2 mg/dL (0.0-0.4); BILIRUBIN,TOTAL 0.2 mg/dL (0.2-1.3); BLOOD UREA NITROGEN 9 mg/dL (7-20); CALCIUM 9.2 mg/dL (8.4-10.2); CARBON DIOXIDE 26 mmol/L (22-30); CHLORIDE 104 mmol/L (98-107); GLUCOSE 96 mg/dL (75-110); POTASSIUM 3.7 mmol/L (3.6-5.0); TOTAL PROTEIN 7.2 g/dL (6.3-8.2)
[2019-04-25 22:48] LABS: ACETAMINOPHEN < 10 ug/mL (10-30); ALCOHOL < 10 mg/dL (NONE DETECTED); SALICYLATE < 1.0 mg/dL (2.0-20.0)
[2019-04-25 22:51] LABS: ANISOCYTOSIS 2+; HYPOCHROMASIA 2+; OVALOCYTES 1+; PLATELET COMMENT ADEQUATE; POIKILOCYTOSIS 1+; TEAR DROP CELLS SLIGHT
[2019-04-26] MEDS ORDERED: HYDROXYZINE PAMOATE 50 MG CAPSULE PO ONE (09:36)
--- NOTE | 2019-04-26 09:36 | ER Document Report ---
Doctor's Note Notes: 04/26/19 09:34 HPI;43-year-old female with a long-standing history of benzodiazepine abuse/Xanax use who presents on involuntary commitment papers from [facility]. Patient indicates that for some unknown reason her she was sent over here this evening under IVC papers to "get higher level of care". Patient comes with an IVC paper that has minimal information and just states that she has mental problems, she is considered to be a danger to herself and others at times and she has been detoxing. As the rounding physician this AM, I assessed the patient's labs, vitals, and records. No concerning findings this morning. Patient states that she needs her methadone and Ativan. We did call over to the detox center who state the patient has not been on methadone. Awaiting medication recommendations by behavioral health. Patient is cleared for disposition by behavioral health team. PHYSICAL EXAMINATION: GENERAL: Well-appearing, well-nourished and in no acute distress. HEAD: Atraumatic, normocephalic. EYES: Pupils equal round extraocular movements intact, conjunctiva are normal. ENT: Nares patent NECK: Normal range of motion LUNGS: No respiratory distress Musculoskeletal: Normal range of motion NEUROLOGICAL: Normal speech, normal gait. PSYCH: Anxious SKIN: Warm, Dry, normal turgor, no rashes or lesions noted.
--- NOTE | 2019-04-26 10:57 | EKG REPORT ---
SEVERITY:- BORDERLINE ECG - SINUS RHYTHM PROBABLE LEFT ATRIAL ABNORMALITY : Confirmed by: Linda Nunez 26-Apr-2019 10:56:49
[2019-04-26 16:20] VITALS: BP 126/91
--- NOTE | 2019-04-27 08:30 | PSYCHOLOGICAL NOTE ---
Psych Note - Psych Note Date seen by psych provider: 04/27/19 Time seen by psych provider: 09:25 Psych Note: Reason for Consult: IVC 43-year-old female with a long-standing history of benzodiazepine abuse/Xanax use who presents on involuntary commitment papers from [facility]. Patient discusses wanting to go back to the detox center because they were providing her Ativan to control her withdrawal symptoms from methadone. She continued to state that while being at [facility] she is not received any assistance with medications. Clinician was notified that the patient was asking attending physician for 80 mg of methadone. Patient was reminded by clinician that she has not had methadone for 10 days. Clinician asked patient if she had still been using methadone from personal medications that she has access to at [facility]. Patient denies and states that she has a long acting "special" methadone that stays in her system even after a week and a half of using. Clinician spoke with [facility] crisis [facility] They reports that they have not provide the patient with any methadone as they do not carry that in their facility. Patient self disclosed last use of methadone was 04/16/2019. They have concern that the patient has been noted to become very altered which is why they sent the patient to [facility]. Chart review conducted Patient was seen by this clinician and department on 04/21/2019. Clinician notes during that stay the patient seemed to to deteriorate unexpectedly and became altered. This resulted in an IVC petition for mental health observation. It is interesting to note that just prior to her unexpected deterioration the patient had left her room and was not able to be found. She was found shortly after in the main lobby. During that visit the patient came in as medical so none of her belongings were inventoried and the patient was still wearing her personal clothing until she was found altered. Patient is alert and orientated to person, place, time and circumstance. Mood is dysphoric with tearful affect. Patient denies suicidal homicidal ideation. Delusions are absent behaviors congruent with an intact reality based presentation I organized and linear thought process. Eye contact is fair. Conversational speech is tearful however able to be understood. Intellectual abilities appear to be within the average range. Attention and concentration are fair. Insight, judgment, impulse control are fair. polysubstance abuse No medication recommendations at this time Impression\\plan: Patient is recommended for rescind of IVC and is cleared from acute psychiatric services. Patient does not meet IVC criteria per [place] GS 122C. Patient no longer is demonstrating altered mental status. Patient denies suicidal homicidal ideation. there is significant concern that the patient has continued to use her methadone while at [facility] and possibly once during her 04/21/2019 stay at [facility]. Patient is not demonstrating any behaviors indicating that she is responding to internal stimuli. Thought processes are organized and linear. At this time [facility] states the patient is unable to return to their facility. Patient states she understands this and identifies her mother can come pick her up and take her back home to [place]. Dr. Wolf was consulted to care management of this patient; attending physicians in agreement with recommendations and disposition.
== END 2019-04-26 17:01 | disposition home or self-care (01) ==
LOC: ER 18:05
DX: F13.239 Sedative, hypnotic or anxiolytic dependence with withdrawal, unspecified (principal); F41.9 Anxiety disorder, unspecified; F17.200 Nicotine dependence, unspecified, uncomplicated
CPT/HCPCS: 93005; 99284; 36415; 80307 ×4; 84703; 85025; 80053; 81001; 93010; J3490 ×2